=== PATIENT | female | born 1955 | race Caucasian/White ===

== ENCOUNTER 2019-05-06 15:01 | Inpatient (IN) ==
[2019-05-07] MEDS: AMOX TR K CLV PO SCH ×2 (11:40→17:09)
[2019-05-07] MEDS: Furosemide 40 MG TABLET PO SCH (11:40)
--- NOTE | 2019-05-07 15:55 | Internal Med History&Physical ---
Date of Encounter: 05/07/19 Time of Encounter: 15:15 Assessment and Plan (1) Community acquired pneumonia Current visit: No Status: Acute Continue Augmentin through 05/09/2019. Lactobacillus will be added. Qualifiers: Laterality: right Lung location: lower lobe of lung Qualified Code(s): J18.1 - Lobar pneumonia, unspecified organism (2) Diastolic heart failure Current visit: Yes Status: Chronic Continue Lasix. BN peptide will be monitored. Qualifiers: Heart failure chronicity: chronic Qualified Code(s): I50.32 - Chronic diastolic (congestive) heart failure (3) Morbid obesity with BMI of 50.0-59.9, adult Current visit: Yes Status: Acute Low-fat diet will be ordered. (4) Anemia Current visit: No Status: Chronic Anemia testing 05/01/2019 showed iron 97, transferrin saturation 26%, and transferrin 263. B12 and folate levels will be done. Stool guaiac will be ordered. Qualifiers: Anemia type: iron deficiency Iron deficiency anemia type: chronic blood loss Qualified Code(s): D50.0 - Iron deficiency anemia secondary to blood loss (chronic) (5) Vaginal bleeding Current visit: No Status: Chronic Follow-up with ACCOUNTS RECEIVABLE SUPERVISOR in 1-2 weeks. Internal Medicine - H&P: HPI Chief complaint: Heart failure, pneumonia Admitted From: Hospital to Hospital Transfer Plans for Post Hospital Care: Home History of present illness: Ms. Torrez is a 63 year old female who was hospitalized at [facility] April 30- after presenting with dyspnea. She was found to have anemia with hemoglobin 5.9. Two units packed red blood cells were given. Vaginal bleeding was documented and ACCOUNTS RECEIVABLE SUPERVISOR was consulted. It was learned she had intermittent vagina l bleeding for one year with previous workup at [facility] in [place] with endometrial biopsy. Results were negative per 's report to ACCOUNTS RECEIVABLE SUPERVISOR. No follow-up was done. She was treated for CHF and pneumonia at [facility] and discharged to [facility] swing bed for ongoing care needs. Past Med Surg Social Fam HX - Past Medical History Medical history: CHF Additional medical history: ANEMIA. VAGIAL BLEEDING Psychiatric history: no psych history - Past Surgical History Additional surgical history: tonsicllectomy - Social History Smoking Status: 2nd Hand Smoke Exposure Smokeless Tobacco Status: No Alcohol use: none Drug use: none Internal Medicine - H&P: Meds Amoxicillin/Clavulanate [Augmentin] 875 mg PO BIDWM 3 Days #6 tablet 05/05/19 [Rx] Ferrous Sulfate 325 mg PO BIDWM 30 Days #60 tablet 05/05/19 [Rx] Furosemide [Lasix] 40 mg PO DAILY 30 Days #30 tablet 05/05/19 [Rx] Allergy/AdvReac Type Severity Reaction Status Date / Time No Known Allergies Allergy Verified 05/01/19 14:38 All Systems PM: A 10-system review of systems was performed and is negative for pertinent findings except as documented above in the HPI. Review of systems: Gen.: Her weight has decreased from 154.9 kg on 04/30/2019 [facility] admission to 142.3 kg at present Cardiovascular: She was diagnosed with HFpEF during her [facility] stay. Echocardiogram showed LVEF of 55-60%. There was mild tricuspid regurgitation. There was LAE at 4.70 cm. The interventricular septum and posterior wall thickness measurements were 0.79 and 0.78 cm respectively. E/A ratio was 0.7. She denies hypertension SD DVT or pulmonary embolus Respiratory: She is a lifelong nonsmoker and denies chronic lung disease. She had right thoracentesis during her recent [facility] stay with 475 mL transudate fluid removed. GI: She denies disorders of her liver gallbladder or exocrine pancreas. She reports a colonoscopy approximately 2003 showed colon polyps which were resected. She denies follow-up colonoscopy. : She has had intermittent vaginal bleeding as per history of present illness. ACCOUNTS RECEIVABLE SUPERVISOR follow-up is scheduled in a few days. She denies other kidney or bladder disorders. Neurologic: She denies large distribution strokes or seizures. Endocrine: She denies diabetes thyroid disease or hyperlipidemia. Hematology/oncology: She had anemia on presentation at [facility]. She denies known internal malignancies or other blood disorders. Psychiatric: She has feelings of depression related to the expected of her daughter approximately 2017. She does not take medication for this. She denies other mental health diagnoses. Mus[place] skeletal: She has DJD but denies gout or other bone joint or muscle disorders. - Constitutional Vitals: Temp Pulse Resp BP Pulse Ox 98.6 F 85 16 149/60 94 05/07/19 11:05 05/07/19 11:28 05/07/19 11:05 05/07/19 11:05 05/07/19 11:28 Exam: Gen.: She is a well-developed morbidly obese female lying in bed who appears in no acute distress HEENT: Head is atraumatic and normocephalic. Eyes: EOMI. There is no scleral icterus. Mouth: Mucosa is moist. Neck: Supple and nontender. There is no thyromegaly or adenopathy noted. Heart: Regular without murmurs gallops or ectopics Lungs: No wheezes or crackles are heard. Abdomen: She has a very large abdomen. There is no tenderness to palpation. Organ size cannot be determined. Extremities: She has 1-2+ edema of the lower legs and dorsum of the feet bilaterally. Dorsalis pedis and posterior tibial pulses are not palpated. Neurologic: Mental status: She is talkative and a good historian. Cranial nerves: Smile is symmetric. Forehead wrinkles bilaterally. Tongue protrudes midline. EOMI. Motor: There is no pronator drift. Cerebellar: Finger to nose is intact bilaterally. Skin: Warm and dry
[2019-05-07] MEDS: Lactobacillus 1 EACH CAP.SPRINK PO SCH (20:20)
[2019-05-07] MEDS: Acetaminophen 325 MG TABLET PO PRN (21:03)
[2019-05-08 07:42] LABS: Uric Acid 6.8 mg/dL (2.3-7.6)
[2019-05-08] MEDS: AMOX TR K CLV PO SCH ×2 (09:02→16:09)
[2019-05-08] MEDS: Lactobacillus 1 EACH CAP.SPRINK PO SCH ×2 (09:03→19:52)
[2019-05-08] MEDS: Furosemide 40 MG TABLET PO SCH (09:03)
[2019-05-08 09:21] LABS: Estimated Average Glucose 126 mg/dl
[2019-05-08 10:48] LABS: Folate 12.5 ng/mL (3.0-16.0)
--- NOTE | 2019-05-08 11:29 | Internal Med Progress Note ---
Date of Encounter: 05/08/19 Time of Encounter: 11:20 - Assessment and plan (1) Community acquired pneumonia Current Visit: No Status: Acute Assessment and plan: May 08. She has completed her course of antibiotics with today's doses. Qualifiers: Laterality: right Lung location: lower lobe of lung Qualified Code(s): J18.1 - Lobar pneumonia, unspecified organism (2) Diastolic heart failure Current Visit: Yes Status: Chronic Assessment and plan: May 08. BN peptide stable at 132. Continue Lasix. Add potassium chloride 10 mEq daily. Qualifiers: Heart failure chronicity: chronic Qualified Code(s): I50.32 - Chronic diastolic (congestive) heart failure (3) Morbid obesity with BMI of 50.0-59.9, adult Current Visit: Yes Status: Acute Assessment and plan: May 08. Continue low-fat diet. Check TSH. (4) Anemia Current Visit: No Status: Acute Assessment and plan: May 08. Anemia testing 05/01/2019 showed iron 97, transferrin saturation 26%, and transferrin 263. B12 returned low today at 162. She will be given a B12 injection IM and start oral B12 supplement. Folate level was normal at 12.5. Stool guaiac is pending. Qualifiers: Anemia type: iron deficiency Iron deficiency anemia type: chronic blood loss Qualified Code(s): D50.0 - Iron deficiency anemia secondary to blood loss (chronic) (5) Vaginal bleeding Current Visit: No Status: Chronic Assessment and plan: May 08. Follow-up with STEAM HOIST OPERATOR in 1-2 weeks. (6) Low vitamin D level Current Visit: Yes Status: Acute Assessment and plan: May 08. Vitamin D level returned significantly low at 5. Start vitamin D supplementation. - Subjective Interval history: May 08. She has no new complaints. - Constitutional Vitals: Temp Pulse Resp BP Pulse Ox 98.3 F 74 17 120/58 96 05/08/19 06:45 05/08/19 06:45 05/08/19 06:45 05/08/19 06:45 05/08/19 06:45 Exam: She is sitting in a chair at bedside resting comfortably. Her affect is bright and cheerful. She is appropriate in conversation. There is a ~ 1 cm diameter erosion/ulcer on the lateral/inferior midtongue area. I reviewed her medications and lab results. Consult Discharge Plan - Plan Referrals: Benjamin Stanton, DAVID [Primary Care Provider] - 1 week
[2019-05-08] MEDS ORDERED: Cyanocobalamin (B-12) 1,000 MCG/ML VIAL IM ONE (11:35)
[2019-05-08] MEDS ORDERED: Cholecalciferol (D-3) 1,000 UNIT (25MCG) TABLET PO SCH (11:45)
[2019-05-08] MEDS: Acetaminophen 325 MG TABLET PO PRN (15:20)
[2019-05-09] MEDS: Furosemide 40 MG TABLET PO SCH (09:00)
[2019-05-09] MEDS: Cholecalciferol (D-3) 1,000 UNIT (25MCG) TABLET PO SCH (09:00)
[2019-05-09] MEDS: Lactobacillus 1 EACH CAP.SPRINK PO SCH ×2 (09:00→20:32)
[2019-05-09] MEDS: AMOX TR K CLV PO SCH ×2 (09:01→17:39)
[2019-05-09] MEDS: Cyanocobalamin (B-12) 1,000 MCG TABLET PO SCH (09:01)
[2019-05-09] MEDS: Acetaminophen 325 MG TABLET PO PRN (09:31)
[2019-05-10 05:56] LABS: Basophils % 0.4 %; Eosinophils # 0.3 K/mcL (0.0-0.6); Hematocrit 29.7 % (35.3-44.9); Immature Granulocytes % 0.5 % (0-4); Lymphocytes # 1.1 K/mcL (0.6-4.6); Lymphocytes % 13.8 %; Mean Corpuscular HGB Conc 26.9 g/dL (31.6-35.5); Mean Corpuscular Hemoglobin 24.2 pg (28.0-33.3); Monocytes # 0.6 K/mcL (0.0-1.3); Monocytes % 7.2 %; Neutrophils # 5.9 K/mcL (1.6-8.9); Platelet Count 230 K/mcL (140-400); Red Cell Distribution Width 24.4 % (11.5-14.5); Segmented Neutrophils % 74.1 %
[2019-05-10 06:19] LABS: BUN/Creatinine Ratio 22 (6-26); Blood Urea Nitrogen 13 mg/dL (8-23); Calcium 8.5 mg/dL (8.6-10.3); Carbon Dioxide 35 mEq/L (23-29); Chloride 103 mEq/L (98-107); Glucose 106 mg/dL (70-105); Osmolality,Calculated 299 (280-300); Potassium 4.4 mEq/L (3.5-5.1); Sodium 144 mEq/L (136-145); eGFR For African Americans > 60 (> 60); eGFR For Non-African Americans > 60 (> 60)
[2019-05-10 06:33] LABS: Anisocytosis 1+ (Not Present); Hypochromasia Present (Not Present); Macrocytosis Present (Not Present)
[2019-05-10 06:34] LABS: Platelet Estimate Normal (Normal)
[2019-05-10] MEDS: Cholecalciferol (D-3) 1,000 UNIT (25MCG) TABLET PO SCH (07:53)
[2019-05-10] MEDS: Lactobacillus 1 EACH CAP.SPRINK PO SCH ×2 (07:53→20:08)
[2019-05-10] MEDS: Cyanocobalamin (B-12) 1,000 MCG TABLET PO SCH (07:54)
[2019-05-10] MEDS: Furosemide 40 MG TABLET PO SCH (07:54)
[2019-05-10] MEDS: Acetaminophen 325 MG TABLET PO PRN ×2 (09:37→18:26)
[2019-05-11] MEDS: Acetaminophen 325 MG TABLET PO PRN ×2 (04:04→16:01)
[2019-05-11] MEDS: Furosemide 40 MG TABLET PO SCH (07:39)
[2019-05-11] MEDS: Lactobacillus 1 EACH CAP.SPRINK PO SCH ×2 (07:39→20:36)
[2019-05-11] MEDS: Cholecalciferol (D-3) 1,000 UNIT (25MCG) TABLET PO SCH (07:39)
[2019-05-11] MEDS: Cyanocobalamin (B-12) 1,000 MCG TABLET PO SCH (07:39)
--- NOTE | 2019-05-11 14:15 | Internal Med Progress Note ---
Date of Encounter: 05/11/19 Time of Encounter: 14:07 - Assessment and plan (1) Community acquired pneumonia Current Visit: No Status: Acute Assessment and plan: May 08. She has completed her course of antibiotics with today's doses. Qualifiers: Laterality: right Lung location: lower lobe of lung Qualified Code(s): J18.1 - Lobar pneumonia, unspecified organism (2) Diastolic heart failure Current Visit: Yes Status: Chronic Assessment and plan: May 08. BN peptide stable at 132. Continue Lasix. Add potassium chloride 10 mEq daily. Qualifiers: Heart failure chronicity: chronic Qualified Code(s): I50.32 - Chronic diastolic (congestive) heart failure (3) Morbid obesity with BMI of 50.0-59.9, adult Current Visit: Yes Status: Acute Assessment and plan: May 08. Continue low-fat diet. Check TSH. May 11. TSH normal at 5.192 on 02/05/2019. Continue low-fat diet. (4) Anemia Current Visit: No Status: Acute Assessment and plan: May 08. Anemia testing 05/01/2019 showed iron 97, transferrin saturation 26%, and transferrin 263. B12 returned low today at 162. She will be given a B12 injection IM and start oral B12 supplement. Folate level was normal at 12.5. Stool guaiac is pending. May 11. Stool guaiac positive. I discussed with her the need for follow-up colonoscopy +/- EGD after swing bed discharge. Qualifiers: Anemia type: iron deficiency Iron deficiency anemia type: chronic blood l oss Qualified Code(s): D50.0 - Iron deficiency anemia secondary to blood loss (chronic) (5) Vaginal bleeding Current Visit: No Status: Chronic Assessment and plan: May 08. Follow-up with VEHICLE COST ENGINEER in 1-2 weeks. May 11. She reports VEHICLE COST ENGINEER appointment 05/15/2019. (6) Low vitamin D level Current Visit: Yes Status: Acute Assessment and plan: May 08. Vitamin D level returned significantly low at 5. Start vitamin D supplementation. - Subjective Interval history: May 08. She has no new complaints. May 11. She has no new complaints. - Constitutional Vitals: Temp Pulse Resp BP Pulse Ox 98.4 F 77 17 137/57 96 05/11/19 06:57 05/11/19 06:57 05/11/19 06:57 05/11/19 06:57 05/11/19 06:57 Exam: She is resting comfortably in bed and appears in no acute distress. Her affect is overall cheerful. I reviewed her medications and lab results. Internal Medicine: Result - Labs CBC & Chem 7: 05/10/19 05:30 05/10/19 05:30 Consult Discharge Plan - Plan Referrals: Benjamin Stanton, SERVICES CLERK [Primary Care Provider] - 1 week
[2019-05-12] MEDS: Cyanocobalamin (B-12) 1,000 MCG TABLET PO SCH (07:49)
[2019-05-12] MEDS: Furosemide 40 MG TABLET PO SCH (07:49)
[2019-05-12] MEDS: Acetaminophen 325 MG TABLET PO PRN ×3 (07:49→20:15)
[2019-05-12] MEDS: Cholecalciferol (D-3) 1,000 UNIT (25MCG) TABLET PO SCH (07:49)
[2019-05-12] MEDS: Lactobacillus 1 EACH CAP.SPRINK PO SCH ×2 (07:49→20:16)
[2019-05-13] MEDS: Cholecalciferol (D-3) 1,000 UNIT (25MCG) TABLET PO SCH (08:05)
[2019-05-13] MEDS: Acetaminophen 325 MG TABLET PO PRN ×2 (08:05→17:19)
[2019-05-13] MEDS: Furosemide 40 MG TABLET PO SCH (08:06)
[2019-05-13] MEDS: Lactobacillus 1 EACH CAP.SPRINK PO SCH ×2 (08:06→20:00)
[2019-05-13] MEDS: Cyanocobalamin (B-12) 1,000 MCG TABLET PO SCH (08:06)
--- NOTE | 2019-05-13 14:45 | Internal Med Progress Note ---
Date of Encounter: 05/13/19 Time of Encounter: 14:30 - Assessment and plan (1) Community acquired pneumonia Current Visit: No Status: Acute Assessment and plan: May 08. She has completed her course of antibiotics with today's doses. Qualifiers: Laterality: right Lung location: lower lobe of lung Qualified Code(s): J18.1 - Lobar pneumonia, unspecified organism (2) Diastolic heart failure Current Visit: Yes Status: Chronic Assessment and plan: May 08. BN peptide stable at 132. Continue Lasix. Add potassium chloride 10 mEq daily. May 13. Recheck labs in a.m. Qualifiers: Heart failure chronicity: chronic Qualified Code(s): I50.32 - Chronic diastolic (congestive) heart failure (3) Morbid obesity with BMI of 50.0-59.9, adult Current Visit: Yes Status: Acute Assessment and plan: May 08. Continue low-fat diet. Check TSH. May 11. TSH normal at 5.192 on 02/05/2019. Continue low-fat diet. (4) Anemia Current Visit: No Status: Acute Assessment and plan: May 08. Anemia testing 05/01/2019 showed iron 97, transferrin saturation 26%, and transferrin 263. B12 returned low today at 162. She will be given a B12 injection IM and start oral B12 supplement. Folate level was normal at 12.5. Stool guaiac is pending. May 11. Stool guaiac positive. I discussed with her the need for follow-up colonoscopy +/- EGD after swing bed discharge. Qualifiers: Anemia type: iron deficiency Iron deficiency anemia type: chronic blood loss Qualified Code(s): D50.0 - Iron deficiency anemia secondary to blood loss (chronic) (5) Vaginal bleeding Current Visit: No Status: Chronic Assessment and plan: May 08. Follow-up with HEALTH NAVIGATOR in 1-2 weeks. May 11. She reports HEALTH NAVIGATOR appointment 05/15/2019. (6) Low vitamin D level Current Visit: Yes Status: Acute Assessment and plan: May 08. Vitamin D level returned significantly low at 5. Start vitamin D supplementation. - Subjective Interval history: May 08. She has no new complaints. May 11. She has no new complaints. May 13. She has no new complaints. She has dyspnea on exertion. - Constitutional Vitals: Temp Pulse Resp BP Pulse Ox 98.1 F 80 18 127/57 98 05/13/19 05:59 05/13/19 05:59 05/13/19 05:59 05/13/19 05:59 05/13/19 05:59 Exam: She is resting comfortably in a chair at bedside. Her affect is bright and cheerful. I reviewed her medications and lab results. Internal Medicine: Result - Labs CBC & Chem 7: 05/10/19 05:30 05/10/19 05:30 Consult Discharge Plan - Plan Referrals: Benjamin Stanton, SUPERVISING LIBRARIAN [Primary Care Provider] - 1 week
[2019-05-14 06:03] LABS: Basophils % 0.5 %; Eosinophils # 0.2 K/mcL (0.0-0.6); Hematocrit 32.5 % (35.3-44.9); Hemoglobin 8.8 g/dL (11.5-15.4); Immature Granulocytes % 0.9 % (0-4); Lymphocytes # 1.3 K/mcL (0.6-4.6); Lymphocytes % 16.5 %; Mean Corpuscular HGB Conc 27.1 g/dL (31.6-35.5); Mean Corpuscular Hemoglobin 25.1 pg (28.0-33.3); Mean Corpuscular Volume 92.9 fL (83.0-100.0); Mean Platelet Volume 9.9 fL (9.4-12.4); Monocytes # 0.7 K/mcL (0.0-1.3); Monocytes % 8.3 %; Neutrophils # 5.6 K/mcL (1.6-8.9); Platelet Count 320 K/mcL (140-400); Segmented Neutrophils % 70.8 %
[2019-05-14 06:25] LABS: BUN/Creatinine Ratio 23 (6-26); Blood Urea Nitrogen 17 mg/dL (8-23); Calcium 8.6 mg/dL (8.6-10.3); Carbon Dioxide 34 mEq/L (23-29); Chloride 104 mEq/L (98-107); Glucose 115 mg/dL (70-105); Osmolality,Calculated 298 (280-300); Potassium 4.5 mEq/L (3.5-5.1); Sodium 143 mEq/L (136-145); eGFR For African Americans > 60 (> 60); eGFR For Non-African Americans > 60 (> 60)
[2019-05-14 07:22] LABS: Anisocytosis 1+ (Not Present); Hypochromasia Present (Not Present)
[2019-05-14 07:24] LABS: Platelet Estimate Increased (Normal)
[2019-05-14] MEDS: Cholecalciferol (D-3) 1,000 UNIT (25MCG) TABLET PO SCH (09:28)
[2019-05-14] MEDS: Acetaminophen 325 MG TABLET PO PRN ×2 (09:28→19:40)
[2019-05-14] MEDS: Lactobacillus 1 EACH CAP.SPRINK PO SCH ×2 (09:28→19:37)
[2019-05-14] MEDS: Cyanocobalamin (B-12) 1,000 MCG TABLET PO SCH (09:29)
[2019-05-14] MEDS: Furosemide 40 MG TABLET PO SCH (09:29)
[2019-05-15] MEDS: Cholecalciferol (D-3) 1,000 UNIT (25MCG) TABLET PO SCH (10:23)
[2019-05-15] MEDS: Cyanocobalamin (B-12) 1,000 MCG TABLET PO SCH (10:23)
[2019-05-15] MEDS: Lactobacillus 1 EACH CAP.SPRINK PO SCH ×2 (10:23→20:55)
[2019-05-15] MEDS: Furosemide 40 MG TABLET PO SCH (10:23)
[2019-05-15] MEDS: Acetaminophen 325 MG TABLET PO PRN (10:28)
[2019-05-16] MEDS: Acetaminophen 325 MG TABLET PO PRN ×3 (00:51→18:54)
[2019-05-16] MEDS: Lactobacillus 1 EACH CAP.SPRINK PO SCH ×2 (08:10→20:29)
[2019-05-16] MEDS: Furosemide 40 MG TABLET PO SCH (08:10)
[2019-05-16] MEDS: Cholecalciferol (D-3) 1,000 UNIT (25MCG) TABLET PO SCH (08:10)
[2019-05-16] MEDS: Cyanocobalamin (B-12) 1,000 MCG TABLET PO SCH (08:10)
--- NOTE | 2019-05-16 11:37 | Internal Med Progress Note ---
Date of Encounter: 05/16/19 Time of Encounter: 10:15 - Assessment and plan (1) Community acquired pneumonia Current Visit: No Status: Acute Assessment and plan: May 08. She has completed her course of antibiotics with today's doses. Qualifiers: Laterality: right Lung location: lower lobe of lung Qualified Code(s): J18.1 - Lobar pneumonia, unspecified organism (2) Diastolic heart failure Current Visit: Yes Status: Chronic Assessment and plan: May 08. BN peptide stable at 132. Continue Lasix. Add potassium chloride 10 mEq daily. May 13. Recheck labs in a.m. May 15. BN peptide stable at 123. Continue present Rx. Qualifiers: Heart failure chronicity: chronic Qualified Code(s): I50.32 - Chronic diastolic (congestive) heart failure (3) Morbid obesity with BMI of 50.0-59.9, adult Current Visit: Yes Status: Acute Assessment and plan: May 08. Continue low-fat diet. Check TSH. May 11. TSH normal at 5.192 on 02/05/2019. Continue low-fat diet. (4) Anemia Current Visit: No Status: Acute Assessment and plan: May 08. Anemia testing 05/01/2019 showed iron 97, transferrin saturation 26%, and transferrin 263. B12 returned low today at 162. She will be given a B12 injection IM and start oral B12 supplement. Folate level was normal at 12.5. Stool guaiac is pending. May 11. Stool guaiac positive. I discussed with her the need for follow-up colonoscopy +/- EGD after swing bed discharge. Qualifiers: Anemia type: iron deficiency Iron deficiency anemia type: chronic blood loss Qualified Code(s): D50.0 - Iron deficiency anemia secondary to blood loss (chronic) (5) Vaginal bleeding Current Visit: No Status: Chronic Assessment and plan: May 08. Follow-up with AEROSPACE MANAGER in 1-2 weeks. May 11. She reports AEROSPACE MANAGER appointment 05/15/2019. (6) Low vitamin D level Current Visit: Yes Status: Acute Assessment and plan: May 08. Vitamin D level returned significantly low at 5. Start vitamin D supplementation. (7) Chest discomfort Current Visit: Yes Status: Acute Assessment and plan: May 16. Not convincingly myocardial ischemic origin by history. Chest CTA was done at [facility] 04/30/2019 for elevated d-dimer and dyspnea. No PE or pulmonary abnormality was seen. Pleural effusions were noted. Recheck chest x- ray. - Subjective Interval history: May 08. She has no new complaints. May 11. She has no new complaints. May 13. She has no new complaints. She has dyspnea on exertion. May 15. She reports she has had almost daily episodes of discomfort in her chest since she was hospitalized at [facility]. She describes the discomfort as a gradual onset of "pressure" unrelated to activity. She does not get the discomfort on ambulating during therapy. It lasts from a few minutes to several hours. She thinks it is worse on inspiration. No cough dyspnea nausea or diaphoresis associated with the discomfort. - Constitutional Vitals: Temp Pulse Resp BP Pulse Ox 98.4 F 75 20 114/70 98 05/16/19 06:21 05/16/19 09:43 05/16/19 06:21 05/16/19 09:43 05/16/19 09:43 Exam: She is sitting in a chair at bedside resting comfortably and appears in no acute distress. Her affect is overall bright and cheerful. Heart is regular without murmurs gallops or ectopics. Lungs are clear. There is slight discomfort on costosternal joint compression. She is equivocal if it is similar to the spontaneous discomfort she has experienced. I reviewed her medications and lab results. Internal Medicine: Result - Labs CBC & Chem 7: 05/14/19 05:42 05/14/19 05:42 Consult Discharge Plan - Plan Referrals: Benjamin Stanton, METAL LEAF LAYER [Primary Care Provider] - 1 week
[2019-05-17] MEDS: Acetaminophen 325 MG TABLET PO PRN (07:59)
[2019-05-17] MEDS: Cholecalciferol (D-3) 1,000 UNIT (25MCG) TABLET PO SCH (07:59)
[2019-05-17] MEDS: Cyanocobalamin (B-12) 1,000 MCG TABLET PO SCH (07:59)
[2019-05-17] MEDS: Furosemide 40 MG TABLET PO SCH (07:59)
[2019-05-17] MEDS: Lactobacillus 1 EACH CAP.SPRINK PO SCH ×2 (07:59→20:00)
[2019-05-18] MEDS: Acetaminophen 325 MG TABLET PO PRN ×3 (01:15→23:23)
[2019-05-18] MEDS: Cholecalciferol (D-3) 1,000 UNIT (25MCG) TABLET PO SCH (08:19)
[2019-05-18] MEDS: Cyanocobalamin (B-12) 1,000 MCG TABLET PO SCH (08:19)
[2019-05-18] MEDS: Lactobacillus 1 EACH CAP.SPRINK PO SCH ×2 (08:19→20:10)
[2019-05-18] MEDS: Furosemide 40 MG TABLET PO SCH (08:19)
[2019-05-19] MEDS: Acetaminophen 325 MG TABLET PO PRN ×3 (05:17→20:03)
[2019-05-19 05:22] LABS: Basophils % 0.4 %; Eosinophils # 0.2 K/mcL (0.0-0.6); Eosinophils % 2.3 %; Hemoglobin 8.9 g/dL (11.5-15.4); Immature Granulocytes % 0.4 % (0-4); Lymphocytes # 1.4 K/mcL (0.6-4.6); Mean Corpuscular HGB Conc 27.8 g/dL (31.6-35.5); Mean Corpuscular Hemoglobin 25.9 pg (28.0-33.3); Mean Platelet Volume 9.7 fL (9.4-12.4); Monocytes # 0.6 K/mcL (0.0-1.3); Monocytes % 7.3 %; Neutrophils # 5.7 K/mcL (1.6-8.9); Platelet Count 309 K/mcL (140-400); Red Blood Count 3.44 M/mcL (3.82-4.97); Red Cell Distribution Width 26.2 % (11.5-14.5); Segmented Neutrophils % 71.6 %
[2019-05-19 05:42] LABS: BUN/Creatinine Ratio 23 (6-26); Blood Urea Nitrogen 15 mg/dL (8-23); Calcium 8.6 mg/dL (8.6-10.3); Carbon Dioxide 33 mEq/L (23-29); Chloride 102 mEq/L (98-107); Glucose 101 mg/dL (70-105); Osmolality,Calculated 293 (280-300); Potassium 4.5 mEq/L (3.5-5.1); Sodium 141 mEq/L (136-145); eGFR For African Americans > 60 (> 60); eGFR For Non-African Americans > 60 (> 60)
[2019-05-19 06:19] LABS: Anisocytosis 2+ (Not Present); Hypochromasia Present (Not Present); Platelet Estimate Normal (Normal); Polychromasia 1+ (Not Present); Toxic Granulation Present (Not Present)
[2019-05-19] MEDS: Furosemide 40 MG TABLET PO SCH (09:29)
[2019-05-19] MEDS: Lactobacillus 1 EACH CAP.SPRINK PO SCH ×2 (09:29→20:03)
[2019-05-19] MEDS: Cyanocobalamin (B-12) 1,000 MCG TABLET PO SCH (09:29)
[2019-05-19] MEDS: Cholecalciferol (D-3) 1,000 UNIT (25MCG) TABLET PO SCH (09:29)
--- NOTE | 2019-05-19 16:14 | Internal Med Progress Note ---
Date of Encounter: 05/19/19 Time of Encounter: 16:05 - Assessment and plan (1) Community acquired pneumonia Current Visit: No Status: Acute Assessment and plan: May 08. She has completed her course of antibiotics with today's doses. Qualifiers: Laterality: right Lung location: lower lobe of lung Qualified Code(s): J18.1 - Lobar pneumonia, unspecified organism (2) Diastolic heart failure Current Visit: Yes Status: Chronic Assessment and plan: May 08. BN peptide stable at 132. Continue Lasix. Add potassium chloride 10 mEq daily. May 13. Recheck labs in a.m. May 15. BN peptide stable at 123. Continue present Rx. May 19. She will require a semi-electric hospital bed at discharge due to need for frequent changes in body position. She has heart failure which requires positioning in ways not feasible with an ordinary bed including elevation of the head to at least 30 degrees. Qualifiers: Heart failure chronicity: chronic Qualified Code(s): I50.32 - Chronic [place] (congestive) heart failure (3) Morbid obesity with BMI of 50.0-59.9, adult Current Visit: Yes Status: Acute Assessment and plan: May 08. Continue low-fat diet. Check TSH. May 11. TSH normal at 5.192 on 02/05/2019. Continue low-fat diet. (4) Anemia Current Visit: No Status: Acute Assessment and plan: May 08. Anemia testing 05/01/2019 showed iron 97, transferrin saturation 26%, and transferrin 263. B12 returned low today at 162. She will be given a B12 injection IM and start oral B12 supplement. Folate level was normal at 12.5. Stool guaiac is pending. May 11. Stool guaiac positive. I discussed with her the need for follow-up colonoscopy +/- EGD after swing bed discharge. Qualifiers: Anemia type: iron deficiency Iron deficiency anemia type: chronic blood loss Qualified Code(s): D50.0 - Iron deficiency anemia secondary to blood loss (chronic) (5) Vaginal bleeding Current Visit: No Status: Chronic Assessment and plan: May 08. Follow-up with HOUSECALLS NURSE in 1-2 weeks. May 11. She reports HOUSECALLS NURSE appointment 05/15/2019. May 19. She will follow with HOUSECALLS NURSE physician upon relocation to [place] for further evaluation. (6) Low vitamin D level Current Visit: Yes Status: Acute Assessment and plan: May 08. Vitamin D level returned significantly low at 5. Start vitamin D supplementation. (7) Chest discomfort Current Visit: Yes Status: Acute Assessment and plan: May 16. Not convincingly myocardial ischemic origin by history. Chest CTA was done at [facility] 04/30/2019 for elevated d-dimer and dyspnea. No PE or pulmonary abnormality was seen. Pleural effusions were noted. Recheck chest x- ray. May 19. Chest x-ray showed no pleural effusion. She did not mention chest pain today. Continue to monitor. (8) Weakness Current Visit: Yes Status: Acute Assessment and plan: May 19. She has a mobility limitation that impairs her ability to do toileting dressing and bathing. The limitation cannot be improved by use of a cane or walker. A manual wheelchair will significant improve her ability to participate in daily activities. She has expressed willingness use the wheelchair on a regular basis. Upper extremity function and mental capabilities are satisfactory to safety propel the wheelchair in the home. - Subjective Interval history: May 08. She has no new complaints. May 11. She has no new complaints. May 13. She has no new complaints. She has dyspnea on exertion. May 15. She reports she has had almost daily episodes of discomfort in her chest since she was hospitalized at [facility]. She describes the discomfort as a gradual onset of "pressure" unrelated to activity. She does not get the discomfort on ambulating during therapy. It lasts from a few minutes to several hours. She thinks it is worse on inspiration. No cough dyspnea nausea or diaphoresis associated with the discomfort. May 19. She has no new complaints. She anticipates discharge 05/21/2019 with relocation to [place] that day. - Constitutional Vitals: Temp Pulse Resp BP Pulse Ox 98.4 F 70 16 129/73 95 05/19/19 06:39 05/19/19 06:39 05/19/19 06:39 05/19/19 06:39 05/19/19 13:27 Exam: She is sitting in a chair at bedside resting comfortably wearing oxygen. Her affect is bright and cheerful. I reviewed her medications and lab results. Internal Medicine: Result - Labs CBC & Chem 7: 05/19/19 05:00 05/19/19 05:00 Labs: Short CBC 05/19/19 Range/Units 05:00 WBC 8.0 (4.3-11.1) K/mcL Hgb 8.9 L (11.5-15.4) g/dL Hct 32.0 L (35.3-44.9) % Plt Count 309 (140-400) K/mcL Neutrophils # 5.7 (1.6-8.9) K/mcL BMP 05/19/19 05:00 Sodium 141 Potassium 4.5 Chloride 102 Carbon Dioxide 33 H BUN 15 Creatinine 0.66 Glucose 101 Calcium 8.6 Consult Discharge Plan - Plan Referrals: Benjamin Stanton, INVENTORY WORKER [Primary Care Provider] - 1 week
[2019-05-20] MEDS: Acetaminophen 325 MG TABLET PO PRN ×2 (04:40→14:35)
[2019-05-20] MEDS: Lactobacillus 1 EACH CAP.SPRINK PO SCH ×2 (09:35→20:26)
[2019-05-20] MEDS: Cholecalciferol (D-3) 1,000 UNIT (25MCG) TABLET PO SCH (09:35)
[2019-05-20] MEDS: Cyanocobalamin (B-12) 1,000 MCG TABLET PO SCH (09:36)
[2019-05-20] MEDS: Furosemide 40 MG TABLET PO SCH (09:36)
[2019-05-21] MEDS: Acetaminophen 325 MG TABLET PO PRN ×2 (00:30→08:00)
[2019-05-21] MEDS: Cyanocobalamin (B-12) 1,000 MCG TABLET PO SCH (07:59)
[2019-05-21] MEDS: Cholecalciferol (D-3) 1,000 UNIT (25MCG) TABLET PO SCH (07:59)
[2019-05-21] MEDS: Lactobacillus 1 EACH CAP.SPRINK PO SCH (08:00)
[2019-05-21] MEDS: Furosemide 40 MG TABLET PO SCH (08:00)
[2019-05-21 08:14] VITALS: BP 122/56
--- NOTE | 2019-05-21 11:06 | Discharge Summary ---
Date of Encounter: 05/21/19 Time of Encounter: 10:55 - Discharge Diagnosis (1) Community acquired pneumonia Priority: Primary Status: Resolved Qualifiers: Laterality: right Lung location: lower lobe of lung Qualified Code(s): J18.1 - Lobar pneumonia, unspecified organism (2) Diastolic heart failure Priority: Secondary Status: Chronic Qualifiers: Heart failure chronicity: chronic Qualified Code(s): I50.32 - Chronic diastolic (congestive) heart failure (3) Morbid obesity with BMI of 50.0-59.9, adult Priority: Secondary Status: Chronic (4) Anemia Priority: Secondary Status: Acute Qualifiers: Anemia type: iron deficiency Iron deficiency anemia type: chronic blood loss Qualified Code(s): D50.0 - Iron deficiency anemia secondary to blood loss (chronic) (5) Vaginal bleeding Priority: Secondary Status: Chronic (6) Low vitamin D level Priority: Secondary Status: Acute (7) Chest discomfort Priority: Secondary Status: Acute (8) Weakness Priority: Secondary Status: Chronic Hospital course: Ms. Torrez is a 63 year old female who was hospitalized at [facility] April 30- after presenting with dyspnea. She was found to have anemia with hemoglobin 5.9. Two units packed red blood cells were given. Vaginal bleeding was documented and [employer] was consulted. It was learned she had intermittent vaginal bleeding for one year with previous workup at [facility] in [place] with endometrial biopsy. Results were negative per 's report to [employer]. No follow-up was done. She was treated for CHF and pneumonia at [facility] and discharged to [facility] swing bed for ongoing care needs. I saw her May 07 and performed a swing bed history and physical. She completed her course of antibiotics on May 08 and had no symptomatic recurrence of pneumonia. Heart failure symptoms were controlled with Lasix. Supplement potassium chloride 10 mEq daily was added to maintain normal potassium level. Anemia testing 05/01/2019 showed iron 97, transferrin saturation 26%, and transferrin 263. B12 returned low at 162. She was given a B12 injection IM and started oral B12 supplement. Folate level was normal at 12.5. Stool guaiac returned positive. I explained to her she should talk to her new PCP in [place] about follow-up on heme positive stool including colonoscopy +/- EGD. She reported previous history of colon polyps without recent follow-up colonoscopy. She had no evidence of vaginal bleeding during her hospital stay. I instructed her to follow with an [employer] physician upon relocation to [place] for further evaluation. Vitamin D level returned low at 5. She was started on supplemental vitamin D and this will be continued at discharge. She had a few episodes of discomfort in her chest of uncertain etiology during her hospital stay. She remained without discomfort for the last 3 days of her swing bed stay. Her PCP can further evaluate. She had physical therapy and occupational therapy intervention during her swing bed stay and made satisfactory progress. A manual wheelchair, hospital bed, and supplemental oxygen were prescribed at discharge. - Time Spent with Patient Total time spent providing and/or coordinating discharge services: - Discharge Medications Prescriptions: New Potassium Chloride 10 meq PO DAILY #30 tab.er.prt Cyanocobalamin (B-12) [Vitamin B12] 1,000 mcg PO DAILY #30 tablet Cholecalciferol (D-3) [Vitamin D] 3,000 unit PO DAILY #90 tablet Continued Ferrous Sulfate 325 mg PO BIDWM 30 Days #60 tablet Furosemide [Lasix] 40 mg PO DAILY 30 Days #30 tablet Discontinued Amoxicillin/Clavulanate [Augmentin] 875 mg PO BIDWM 3 Days #6 tablet Home Medications: Ferrous Sulfate 325 mg PO BIDWM 30 Days #60 tablet 05/05/19 [Rx] Cholecalciferol (D-3) [Vitamin D] 3,000 unit PO DAILY #90 tablet 05/21/19 [Rx] Cyanocobalamin (B-12) [Vitamin B12] 1,000 mcg PO DAILY #30 tablet 05/21/19 [Rx] Furosemide [Lasix] 40 mg PO DAILY 30 Days #30 tablet 05/21/19 [Rx] Potassium Chloride 10 meq PO DAILY #30 tab.er.prt 05/21/19 [Rx] Allergies/Adverse Reactions: Allergy/AdvReac Type Severity Reaction Status Date / Time No Known Allergies Allergy Verified 05/01/19 14:38 Date of admission: 05/06/19 22:24 Primary care physician: Benjamin Stanton CNP Consults: 05/06/19 23:04 Consult to Occupational Therapy [CONS] Routine Comment: TO EVALUATE, DEVELOP, AND IMPLEMENT POC Reason for Consult: TO EVALUATE, DEVELOP, AND IMPLEMENT POC Does patient have active BEDREST order?: No Is patient medically & hemodynamically stable?: Yes Patient assessed for mobility or mobilized this visit?: Yes Consult to Physical Therapy [CONS] Routine Comment: TO EVALUATE, DEVELOP, AND IMPLEMENT POC Reason for Consult: TO EVALUATE, DEVELOP, AND IMPLEMENT POC Does patient have active BEDREST order?: No Is patient medically & hemodynamically stable?: Yes Patient assessed for mobility or mobilized this visit?: Yes Consult to [employer] Operator [CONS] Routine Reason for SW Consult: DISCHARGE PLANNING - Constitutional Vitals: Temp Pulse Resp BP Pulse Ox 98.3 F 81 19 122/56 98 05/21/19 08:13 05/21/19 08:13 05/21/19 08:05/21/19 08:05/20/19 18:53 - Patient Status Disposition: Home, Self-Care - Discharge Instructions - Diet and Activity Activity: ambulate only with your walker, wear oxygen at all times Diet: low fat, low cholesterol, low salt diet
== END 2019-05-21 14:33 | disposition home or self-care (01) | DRG 194 ==
LOC: INPPIK 22:24
PROVIDERS: ADMIT Internal Medicine; ATTEND Internal Medicine